=== PATIENT | male | born 1945 | race Caucasian/White ===

== ENCOUNTER → 2021-01-14 | Outpatient (CLI) | payer MEDICARE ==
--- NOTE | 2021-01-14 18:28 | XR ---
Left humerus HISTORY: Pain 2 views of left humerus Bone mineralization, joint spaces and alignment are maintained. IMPRESSION: Normal left humerus.
== END | disposition home or self-care (01) ==
LOC: RADXRMAIN 15:59
PROVIDERS: ATTEND Family Medicine
DX: M79.622 Pain in left upper arm (principal)

== ENCOUNTER → 2021-03-18 | Outpatient (CLI) | payer MEDICARE ==
--- NOTE | 2021-03-19 05:01 | MR ---
EXAMINATION TYPE: MR shoulder LT wo con DATE OF EXAM: 03/18/2021 COMPARISON: None HISTORY: Pain in left shoulder, hurts to raise over head Multiplanar multiecho imaging of the left shoulder without contrast. There is subdeltoid effusion. There is no significant shoulder joint effusion. The supraspinatus tend on appears intact. There is some spurring at the AC joint with no significant subacromial impingement . The glenoid donald appear intact. Subscapularis tendon is intact. Biceps tendon is intact. Humeral hea d is intact. There is no evidence for fracture. There are small areas of fluid signal in the greater tuberosity of the humerus that measure up to 5 mm. IMPRESSION: Some deltoid fluid consistent with subdeltoid bursitis. No evidence of rotator cuff tear. Small degen erative cysts in the greater tuberosity of the humerus.
== END | disposition home or self-care (01) ==
LOC: RADMRIMAIN 16:05
PROVIDERS: ATTEND Orthopaedic Surgery
DX: M25.512 Pain in left shoulder (principal); M75.52 Bursitis of left shoulder

== ENCOUNTER 2021-04-28 09:00 | Day surgery (SDC) | payer MEDICARE ==
[2021-04-23 18:04] VITALS: BMI 29.7
--- NOTE | 2021-04-27 18:46 | HP ---
HISTORY AND PHYSICAL DATE OF SURGERY: 04/28/2021 Crispin Rendon is a 76-year-old gentleman seen with progressive left shoulder pain. We discussed options for treatment. He elected to proceed with arthroscopy. Consent was obtained. Medical clearance was provided by Dr. Carmelo Taveras. PAST MEDICAL HISTORY: Hypertension. PAST SURGICAL HISTORY: Cholecystectomy, foot surgery. DAILY MEDICATIONS: ALLERGIES: NONE. SOCIAL HISTORY: He smokes occasional cigars. PHYSICAL EVALUATION OF THE LEFT SHOULDER: Flexion 110 degrees, abduction 70 degrees, external rotation 30 degrees with good strength. Tenderness along the anterolateral acromion and rotator cuff insertion site. Impingement is positive at 90 degrees. Cross-body adduction sign is positive. Drop- arm sign is positive. Distal neurovascular exam is intact. IMAGING: Left shoulder radiographs revealed a type 2 acromion, evidence for acromioclavicular joint osteoarthritis and cystic changes of the tuberosity. Left shoulder MRI revealed bursitis and acromioclavicular joint osteoarthritis. IMPRESSION: 1. Left shoulder impingement. 2. Left shoulder acromioclavicular joint osteoarthritis. 3. Hypertension. PLAN: Left shoulder arthroscopy with subacromial decompression, Filemon procedure and debridement. MMODL / IJN: [id number] /
[~2021-04-28 09:00] MED LIST: HYDROmorphone 0.5 MG/0.5 ML SYRINGE IVP PRN; LACTATED RINGERS 1,000 ML IV SCH; LIDOCAINE 1% (10MG/ML) FOR IV START INTRADERMA PRN; ONDANSETRON 4 MG/2 ML VIAL IVP ONE
[2021-04-28] MEDS ORDERED: DEXAMETHASONE SOD PHOSPHATE 4 MG/ML 1 ML VIAL IVP ONE (09:55)
[2021-04-28] MEDS ORDERED: MIDAZOLAM 2 MG/2 ML VIAL IVP ONE (10:02)
[2021-04-28] MEDS ORDERED: PROPOFOL 10 MG/ML 20 ML VIAL IV ONE (10:08)
[2021-04-28] MEDS ORDERED: LIDOCAINE 1% INJ 10MG/ML (20 ML MDV) ONE (10:08)
[2021-04-28] MEDS ORDERED: SUCCINYLCHOLINE CHLORIDE VIAL 200 MG/10 ML VIAL IV ONE (10:08)
[2021-04-28] MEDS ORDERED: KETOROLAC 15 MG/ML 1 ML VIAL ONE (10:08)
[2021-04-28] MEDS ORDERED: ROPIVACAINE 5 MG/ML 30 ML VIAL ONE (10:08)
[2021-04-28] MEDS ORDERED: MIDAZOLAM 2 MG/2 ML VIAL ONE (10:08)
[2021-04-28] MEDS ORDERED: fentaNYL (PF) 50 MCG/ML 2 ML AMP ONE (10:08)
[2021-04-28 11:48] VITALS: TEMP 97
--- NOTE | 2021-04-28 11:48 | P.OP ---
Date of Procedure: 04/28/21 Preoperative Diagnosis: Left shoulder impingement Postoperative Diagnosis: 1. Left shoulder rotator cuff tear 2. Left shoulder impingement 3. Left shoulder acromioclavicular joint osteoarthritis 4. Left shoulder partial long head biceps tendon tear Procedure(s) Performed: 1. Left shoulder arthroscopic rotator cuff repair 2. Left shoulder arthroscopic subacromial decompression 3. Left shoulder arthroscopic Filemon procedure 4. Left shoulder arthroscopic biceps tenotomy Implants: 14.75 Arthrex swivel lock anchor Anesthesia: GETA, regional (Interscalene block) Surgeon: Timothy Liu Industrial Boilermaker #1: Eron Odom Estimated Blood Loss (ml): 8 Pathology: none sent Condition: stable Disposition: PACU Indications for Procedure: 76-year-old patient seen with progressive left shoulder pain. After treatment options were discussed, he elected to proceed with arthroscopy. Operative Findings: See description of procedure Description of Procedure: Patient underwent an interscalene block by department of anesthesia. The patient was then taken to the operative suite. The patient underwent a general anesthetic by the department of anesthesia. The patient was placed into a lateral position and secured. There was appropriate padding of the bony prominence. Left shoulder was then prepped and draped in normal sterile orthopedic fashion. We placed the extremity in 10 pounds of longitudinal traction. A posterior incision was now made for a posterior working portal site. The trocar and cannula were inserted into the glenohumeral joint. Arthroscopy w as initiated. Spinal needle was now inserted anteriorly, to ascertain the anterior working portal site. An incision was now made in that area, a trocar was inserted followed by a probe. There was some hyperemia and partial tearing long head biceps tendon. There were grade 1 chondromalacia changes of the humeral head and grade 1/2 chondromalacia changes of the glenoid fossa centrally. No osteochondral tears were present. I performed an arthroscopic biceps tenotomy. I again probed the labrum and it was found to be stable. Instruments now removed from glenohumeral joint. Utilizing the posterior working portal site, the trocar and cannula were inserted into the subacromial space. Arthroscopy initiated. I made an incision 2 fingerbreadths lateral to the acromion. I introduced my trocar followed by my ArthroCare ablator. I now began ablating thick subacromial bursal tissue, which exposed the undersurface of the anterior acromion. There was diminished subacromial space. There was a very prominent anterior acromion. A motorized bur was introduced and a subacromial decompression was performed. I also excised some osteophytes off the inferior aspect of the distal clavicle. The AC joint was visualized and noted to be fairly arthritic. The motorized bur was introduced in the anterior portal site and a Filemon procedure was performed without difficulty, decompressing the AC joint nicely. I turned my attention to the rotator cuff. There was an area of significant partial tearing distal supraspinatus. Upon probing the area there was a full-thickness perforation present. I debrided that area getting down to stable tendon tissue. The defect measured approximately 1.5 cm and was freely mobile over the footprint. I abraded the footprint with a motorized bur. With the assistance of Cezar VAUGHN I passed 2 everted mattress sutures through good bites of rotator cuff tendon. I punched a hole in the footprint area for insertion of an anchor. All 4 limbs of suture were then passed through the eyelet of a 4.75 Arthrex swivel lock anchor. I placed the eyelet into the pre-punch hole. I held it in position while Cezar VAUGHN tensioned the sutures and deployed the anchor with good fixation noted. All residual suture limbs were now clipped. We had good compression of the tendon along the entire footprint. Instruments now removed from the portal sites. All portal sites were approximated with nylon suture. Sterile dressings were applied followed by a shoulder sling. Eron VAUGHN assisted in this case. The patient was awakened, transferred to a bed, and taken to recovery in stable condition.
[2021-04-28] MEDS ORDERED: LACTATED RINGERS 1,000 ML IV ONE (12:24)
[2021-04-28 13:36] VITALS: BP 143/73; PULSE 62; RESP 20
--- NOTE | 2021-04-28 14:39 | P.ANPRN ---
Procedure Note - Anesthesia - Nerve Block Performed Left Interscalene Time Out Performed: Yes (:) Date of Procedure: 04/28/21 Procedure Start Time: Procedure Stop Time: Location of Patient: PreOp Indication: Acute Post-Operative Pain, Requested by Surgeon (Dr Liu) Sedation Type: Sedate with meaningful contact maintained Preparation: Sterile Prep Position: Supine Catheter: None Needle Types: Pajunk Needle Gauge: Other (see comment) (22g) Ultrasound used to visualize needle placement: Yes Ultrasound used to observe medication spread: Yes Injectate: 0.5% Ropivacaine (see comment for volume) (20cc) Blood Aspirated: No Pain Paresthesia on Injection Noted: No Resistance on Injection: Normal Image Stored and Saved: Yes Events: Uneventful and Well Tolerated
== END 2021-04-28 13:43 | disposition home or self-care (01) ==
LOC: OR 09:00
PROVIDERS: ATTEND Orthopaedic Surgery
DX: M25.812 Other specified joint disorders, left shoulder (principal); M75.102 Unspecified rotator cuff tear or rupture of left shoulder, not specified as traumatic; M19.012 Primary osteoarthritis, left shoulder; S46.212A Strain of muscle, fascia and tendon of other parts of biceps, left arm, initial encounter; I10 Essential (primary) hypertension; Z87.891 Personal history of nicotine dependence; Z79.899 Other long term (current) drug therapy
CPT/HCPCS: 64415; 76942; 29828; 29827; 29826; C1713; J2250; J0330; J1100; J0690; J2405; J2001; J3010; J2795; J1885; J2704

== ENCOUNTER → 2021-06-30 | Outpatient (CLI) | payer MEDICARE ==
--- NOTE | 2021-06-30 16:44 | XR ---
Left shoulder HISTORY: M25.512 Correlation for shoulder MRI 03/18/2021 3 views of the left shoulder Acromioclavicular joint shows arthropathy change. Distal acromion is down turned. Some mild spurring present at the humeral head. Left lung apex as visualized is normal. No fracture or dislocation. IMPRESSION: Osteoarthritis, correlate for shoulder impingement
== END ==
LOC: RADXRMAIN 13:54
PROVIDERS: ATTEND Orthopaedic Surgery
DX: M19.012 Primary osteoarthritis, left shoulder (principal)

== ENCOUNTER 2023-12-08 19:40 | Emergency (ER) | payer MEDICARE ==
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
[2023-12-08 20:15] VITALS: TEMP 97.8
--- NOTE | 2023-12-09 01:21 | CT ---
EXAMINATION TYPE: CT brain cspine wo con CT DLP: COMBINED 1136.3 mGycm, Automated exposure control for dose reduction was used. DATE OF EXAM: 12/08/2023 9:52 PM COMPARISON: None. CLINICAL INDICATION:Male, 78 years old with history of fall; FALL TECHNIQUE: Brain: Multiple axial CT images of the brain were obtained without IV contrast. Cspine: Axial CT images from the skull base to the inferior aspect of T2 we obtained without intraven ous contrast. Coronal and sagittal reformatted images were also reviewed. FINDINGS: Brain: Extra-axial spaces: No abnormal extra-axial fluid collections. Ventricular system: Appear dilated in proportion to the degree of cerebral atrophy. Cerebral parenchyma: No increased attenuation to suggest acute intraparenchymal hemorrhage. The gra y-white matter interface appears maintained. Mild generalized brain atrophy. Scattered hypoattenuat ing areas are seen within the cerebral white matter, nonspecific but most often seen with chronic natan rovascular ischemic changes; mild in degree. Cerebellum: No acute abnormality. Mass effect: No evidence of mass effect or midline shift. Intracranial vasculature: Atherosclerotic calcifications of the larger arteries near the skull base. Soft tissues: No acute finding Visualized orbits: Orbits show no acute finding. Postoperative changes, including scleral banding on the left and probable lens replacements. Calvarium/osseous structures: No evidence of calvarial fracture. Mild deformity of the nasal bones li good chronic depending on clinical correlation. Paranasal sinuses and mastoid air cells: Clear. MRI is more sensitive for detecting acute processes such as infarct, and may be considered if clinica lly warranted. Cervical spine: Fracture: None seen. Osseous structures, spinal canal/neural foramina: Craniocervical junction is intact. Multilevel degen erative changes in the cervical spine, this is overall moderate in degree. No critical bony spinal ca nal stenosis. The most significant change appears to be moderate to severe bilateral neuroforaminal s tenosis (slightly worse on the right than left) at C5-6, as well as mild/moderate canal stenosis. Deg enerative changes of the anterior C1-C2 articulation is also seen, mild to moderate in degree. Vertebral alignment: No traumatic malalignment. Preserved normal cervical lordosis. No significant li sthesis is seen. Neck soft tissues: No acute finding.. Minor calcifications at the carotid bifurcations. Other: Included portion of the chest shows mild chronic senescent changes without acute infiltrate or pneumothorax at the lung apices. Coarsely calcified nodules in the upper mediastinum, likely related to remote granulomatous disease. Thyroid appears unremarkable, save for a tiny hypodense nodule on t he left. IMPRESSION: CT head: 1. No acute intracranial hemorrhage, midline shift, or mass effect. CT cervical spine: 1. No evidence of acute cervical spine fracture or traumatic malalignment. 2. Moderate cervical spondylosis.
--- NOTE | 2023-12-09 01:58 | CT ---
EXAMINATION TYPE: CT facial bones wo con CT DLP: COMBINED 1136.3 mGycm, Automated exposure control for dose reduction was used. DATE OF EXAM: 12/08/2023 9:52 PM COMPARISON: . CLINICAL INDICATION:Male, 78 years old with history of FALL; PHH, FALL TECHNIQUE: Multiple unenhanced axial CT images were obtained of the facial bones soft tissue and bone windows. Coronal, axial and sagittal reformatted images were also provided in soft tissue and bone windows and submitted for interpretation. FINDINGS: Mandible appears intact and the TMJs are normally aligned. Zygomatic arches appear normal. No evidence of orbital wall fracture. Pterygoid plates are intact. There is mild fracture deformity of the nasal bones, with tiny foci of adjacent soft tissue gas, favo red to be acute. No significant depression of fragments, but there is a slightly transverse narrowed appearance of the nose at this level. There may be a tiny fracture at the anterior aspect of the ante rior nasal spine. No significant intracavitary fluid accumulation. The mastoid air cells are clear. Soft tissues show probable mild soft tissue swelling over the bridge of the nose. No intraorbital sof t tissue abnormality. Globes appear intact with postop changes including scleral band on the left and probably bilateral lens replacement surgeries noted. IMPRESSION: 1. Mild fracture deformity of the nasal bones, favored to be acute. Correlate clinically. 2. Possible tiny fracture at the anterior aspect of the anterior nasal spine.
[2023-12-09 02:14] LABS: Basophils # (A) 0.1 k/uL (0-0.2); Basophils % (A) 1 %; Eosinophils # (A) 0.1 k/uL (0-0.7); Eosinophils % (A) 1 %; HCT 46.6 % (39.0-53.0); HGB 15.4 gm/dL (13.0-17.5); Lymphocytes # (A) 1.6 k/uL (1.0-4.8); Lymphocytes % (A) 16 %; MCH 30.3 pg (25.0-35.0); MCHC 33.2 g/dL (31.0-37.0); MCV 91.4 fL (80.0-100.0); Mean Platelet Volume 7.1; Monocytes # (A) 0.6 k/uL (0-1.0); Monocytes % (A) 6 %; Neutrophils # (A) 7.7 k/uL (1.3-7.7); Neutrophils % (A) 75 %; Platelet Count 252 k/uL (150-450); RBC 5.09 m/uL (4.30-5.90); RDW 13.7 % (11.5-15.5); WBC 10.2 k/uL (3.8-10.6)
[2023-12-09 02:35] LABS: ALT 37 U/L (4-49); AST 53 U/L (17-59); African American GFR (CKD) 86 (>60 ml/min/1.73 sqM); Albumin 4.5 g/dL (3.5-5.0); Alkaline Phosphatase 87 U/L (38-126); Anion Gap 6 mmol/L; Blood Urea Nitrogen 16 mg/dL (9-20); Calcium 9.1 mg/dL (8.4-10.2); Carbon Dioxide 27 mmol/L (22-30); Chloride 106 mmol/L (98-107); Glucose 138 mg/dL (74-99); Magnesium 1.9 mg/dL (1.6-2.3); Non-African American GFR(CKD) 75 (>60 ml/min/1.73 sqM); Potassium 4.5 mmol/L (3.5-5.1); Sodium 139 mmol/L (137-145); Total Bilirubin 0.7 mg/dL (0.2-1.3); Total Protein 7.9 g/dL (6.3-8.2)
[2023-12-09 02:36] LABS: Prothrombin Time 10.5 sec (10.0-12.5)
--- NOTE | 2023-12-09 02:38 | XR ---
EXAM: XR Chest, 2 Views CLINICAL HISTORY: ITS.REASON XR Reason: Chest Pain TECHNIQUE: Frontal and lateral views of the chest. COMPARISON: No relevant prior studies available. FINDINGS: Lungs: No consolidation or mass. Pleural space: No effusion. Heart: mild cardiomegaly. Bones/joints: No acute findings. IMPRESSION: No acute cardiopulmonary process.
[2023-12-09 02:42] LABS: Partial Thromboplastin Time 21.6 sec (22.0-30.0)
--- NOTE | 2023-12-09 04:21 | CT ---
EXAM: CT Abdomen and Pelvis With Intravenous Contrast CLINICAL HISTORY: abdominal pain, fall today TECHNIQUE: Axial computed tomography images of the abdomen and pelvis with intravenous contrast. CTDI is 34.7 mGy and DLP is 1667.5 mGy-cm. This CT exam was performed using one or more of the following dose reduction techniques: automated exposure control, adjustment of the mA and/or kV according to patient size, and/or use of iterative reconstruction technique. COMPARISON: No relevant prior studies available. FINDINGS: Mediastinum: Small hiatus hernia. ABDOMEN: Liver: Unremarkable. No mass. Gallbladder and bile ducts: Cholecystectomy. No ductal dilation. Pancreas: Unremarkable. No mass. No ductal dilation. Spleen: Unremarkable. No splenomegaly. Adrenals: Unremarkable. No mass. Kidneys and ureters: Unremarkable. No solid mass. No hydronephrosis. Stomach and bowel: Unremarkable. No obstruction. No mucosal thickening. PELVIS: Appendix: No findings to suggest acute appendicitis. Bladder: Unremarkable. No mass. ABDOMEN and PELVIS: Intraperitoneal space: Unremarkable. No free air. No significant fluid collection. Bones/joints: No acute findings. Soft tissues: Unremarkable. Vasculature: Unremarkable. No abdominal aortic aneurysm. Lymph nodes: Unremarkable. No enlarged lymph nodes. IMPRESSION: No acute findings in the abdomen or pelvis.
[2023-12-09] MEDS: ACET/COD 300 MG/30 MG STARTER PACK 6 TAB BTL PO STA (05:03)
[2023-12-09] MEDS: MORPHINE SULFATE 4 MG/ML SYRINGE IVP STA (05:03)
[2023-12-09 05:34] VITALS: BP 140/68; PULSE 65; RESP 18
== END 2023-12-09 05:13 | disposition home or self-care (01) ==
LOC: EC 19:40
DX: S02.2XXA Fracture of nasal bones, initial encounter for closed fracture (principal); R00.0 Tachycardia, unspecified; W18.09XA Striking against other object with subsequent fall, initial encounter
CPT/HCPCS: 36415; 93005; 80053; 83735; 84484; 85025; 85610; 85730; 71046; 72125; 70486; 70450; 74177; 99284; 96374; J2270; Q9967

== ENCOUNTER → 2024-05-30 | Outpatient (CLI) | payer MEDICARE ==
--- NOTE | 2024-05-30 14:56 | XR ---
EXAMINATION TYPE: XR chest 2V DATE OF EXAM: 05/30/2024 COMPARISON: NONE TECHNIQUE: PA and lateral views submitted. HISTORY: Cough FINDINGS: The lungs are clear and there is no pneumothorax, pleural effusion, or focal pneumonia. Heart size normal and no overt failure. Osseous structures demonstrate hypertrophic and degenerative changes of the spine. Biapical pleural thickening. Hyperinflation suggests COPD. IMPRESSION: 1. No acute process. [facility], , 05/30/2024 2:14 PM
== END | disposition home or self-care (01) ==
LOC: RADXRMAIN 12:40
PROVIDERS: ATTEND Family Medicine
CPT/HCPCS: 71046